=== PATIENT | male | born 1975 | race Hispanic/Latino ===

== ENCOUNTER 2018-05-10 11:35 | Emergency (ER) | payer OTHER ==
--- NOTE | 2018-05-10 14:34 | ER ---
Nurse's Notes [facility] Name: Steven Mclean Age: 42 yrs Sex: Male : 1975 Arrival Date: 05/10/2018 Time: 11:36 Bed 10 Private MD: Diagnosis: Urticaria, unspecified Presentation: 05/10 11:58 Presenting complaint: Patient states: i got this rash on my arms a week ago and then it hj spreads on other parts of my body; denies itchiness and pain; denies fever and chills;. Transition of care: patient was not received from another setting of care. Onset of symptoms was May 10, 2018. Risk Assessment: Do you want to hurt yourself or someone else? Patient reports no desire to harm self or others. Initial Sepsis Screen: Does the patient meet any 2 criteria? No. Patient's initial sepsis screen is negative. Does the patient have a suspected source of infection? No. Patient's initial sepsis screen is negative. Care prior to arrival: None. 11:58 Method Of Arrival: Ambulatory 11:58 Acuity: TYRONE 4 hj Triage Assessment: 12:00 General: Appears in no apparent distress. uncomfortable, Behavior is calm, cooperative, hj appropriate for age. Pain: Denies pain. Historical: - Allergies: 11:59 No Known Allergies; hj - Home Meds: 11:59 None [Active]; hj - PMHx: 11:59 None; hj - PSHx: 11:59 None; hj - Immunization history:: Adult Immunizations up to date. - Social history:: Smoking status: Patient/guardian denies using tobacco, Patient uses alcohol, but reports only rare drinking. - Ebola Screening: : Patient negative for fever greater than or equal to 101.5 degrees Fahrenheit, and additional compatible Ebola Virus Disease symptoms Patient denies exposure to infectious person Patient denies travel to an Ebola-affected area in the 21 days before illness onset. Screenin:00 Abuse screen: Denies threats or abuse. Denies injuries from another. Nutritional hj screening: No deficits noted. Tuberculosis screening: No symptoms or risk factors identified. Fall Risk None identified. Assessment: 13:45 General: Appears in no apparent distress. comfortable, Behavior is calm, cooperative. iw Pain: Denies pain. Neuro: Level of Consciousness is awake, alert, obeys commands, Oriented to person, place, time, situation, Moves all extremities. Full function. Cardiovascular: Patient's skin is warm and dry. Respiratory: Respiratory effort is even, unlabored, Respiratory pattern is regular, symmetrical. GI: No signs and/or symptoms were reported involving the gastrointestinal system. Derm: Rash noted that is papular, red. Musculoskeletal: Range of motion: intact in all extremities. Vital Signs: 12:00 BP 125 / 77; Pulse 75; Resp 18; Temp 98.6(O); Pulse Ox 100% on R/A; Weight 97.52 kg; hj Height 5 ft. 10 in. (177.80 cm); Pain 0/10; 12:00 Body Mass Index 30.85 (97.52 kg, 177.80 cm) hj ED Course: 11:36 Patient arrived in ED. rg4 11:59 Triage completed. hj 12:00 Arm band placed on left wrist. hj 12:00 Patient has correct armband on for positive identification. Placed in gown. Bed in low hj position. 13:46 Oralia Chawla RN is Primary Nurse. iw 14:06 Matty Albarado PA is PHCP. cp 14:06 Matty Mccoy MD is Attending Physician. cp 14:38 No provider procedures requiring assistance completed. Patient did not have IV access iw during this emergency room visit. Administered Medications: No medications were administered Outcome: 14:33 Discharge ordered by . cp 14:38 Discharged to home ambulatory. iw 14:38 Condition: stable 14:38 Discharge instructions given to patient, Instructed on discharge instructions, follow up and referral plans. medication usage, Demonstrated understanding of instructions, follow-up care, medications, Prescriptions given X 2. 14:40 Patient left the ED. hj Signatures: Oralia Chawla RN RN Timmy Mckeon RN RN Matty Albarado PA PA cp Garcia, Rubi rg4 Corrections: (The following items were deleted from the chart) 12:02 11:58 Presenting complaint: Patient states: i got this rash on my arms a week ago; hj denies itchiness and pain; denies fever and chills; hj 12:03 12:00 Pulse 75bpm; Resp 18bpm; Pulse Ox 100% RA; Temp 98.6F Oral; 97.52 kg; Height 5 hj ft. 10 in.; BMI: 30.8; Pain 0/10; hj
--- NOTE | 2018-05-10 14:34 | EDPHYS ---
Physician Documentation [facility] Name: tSeven Mclean Age: 42 yrs Sex: Male : 1975 Arrival Date: 05/10/2018 Time: 11:36 Bed 10 Private MD: ED Physician Matty Mccoy HPI: 05/10 14:25 This 42 yrs old Male presents to ER via Ambulatory with complaints of Rash. cp 14:25 The patient's rash thought to be caused by an unknown cause. The rash is located on the cp body diffusely. The rash can be described as urticarial. Onset: The symptoms/episode began/occurred 1 week(s) ago. Historical: - Allergies: 11:59 No Known Allergies; hj - Home Meds: 11:59 None [Active]; hj - PMHx: 11:59 None; hj - PSHx: 11:59 None; hj - Immunization history:: Adult Immunizations up to date. - Social history:: Smoking status: Patient/guardian denies using tobacco, Patient uses alcohol, but reports only rare drinking. - Ebola Screening: : Patient negative for fever greater than or equal to 101.5 degrees Fahrenheit, and additional compatible Ebola Virus Disease symptoms Patient denies exposure to infectious person Patient denies travel to an Ebola-affected area in the 21 days before illness onset. ROS: 14:28 Eyes: Negative for injury, pain, redness, and discharge. cp 14:28 Constitutional: Negative for body aches, chills, fever, poor PO intake. 14:28 ENT: Negative for drainage from ear(s), ear pain, sore throat, difficulty swallowing, difficulty handling secretions. 14:28 Cardiovascular: Negative for chest pain, edema, palpitations. 14:28 Respiratory: Negative for cough, shortness of breath, wheezing. 14:28 Abdomen/GI: Negative for abdominal pain, nausea, vomiting, and diarrhea. 14:28 Skin: Positive for rash, diffusely. 14:28 Neuro: Negative for altered mental status, headache, weakness. 14:28 All other systems are negative. Exam: 14:30 Head/Face: Normocephalic, atraumatic. cp 14:30 Constitutional: The patient appears in no acute distress, alert, awake, non-toxic, well developed, well nourished. 14:30 Eyes: Periorbital structures: appear normal, Conjunctiva: normal, no exudate, no injection, Lids and lashes: appear normal, bilaterally. 14:30 ENT: External ear(s): are unremarkable, Nose: is normal, Mouth: Lips: moist, Oral mucosa: moist, Posterior pharynx: is normal, airway is patent, no erythema, no exudate. 14:30 Chest/axilla: Inspection: normal, Palpation: is normal, no crepitus, no tenderness. 14:30 Cardiovascular: Rate: normal, Rhythm: regular. 14:30 Respiratory: the patient does not display signs of respiratory distress, Respirations: normal, no use of accessory muscles, no retractions, no splinting, no tachypnea, Breath sounds: are clear throughout, no decreased breath sounds, no stridor, no wheezing. 14:30 Abdomen/GI: Exam negative for discomfort, distension, guarding, Inspection: abdomen appears normal. 14:30 Skin: consistent with urticaria, and is diffusely located. Vital Signs: 12:00 BP 125 / 77; Pulse 75; Resp 18; Temp 98.6(O); Pulse Ox 100% on R/A; Weight 97.52 kg; hj Height 5 ft. 10 in. (177.80 cm); Pain 0/10; 12:00 Body Mass Index 30.85 (97.52 kg, 177.80 cm) hj MDM: 14:06 Patient medically screened. cp 14:10 Differential diagnosis: impetigo, varicella, allergic reaction, urticaria, cellulitis. cp 14:32 Data reviewed: vital signs, nurses notes, and as a result, I will discharge patient. cp 14:32 Counseling: I had a detailed discussion with the patient and/or guardian regarding: the cp historical points, exam findings, and any diagnostic results supporting the discharge/admit diagnosis, to return to the emergency department if symptoms worsen or persist or if there are any questions or concerns that arise at home. Administered Medications: No medications were administered Disposition: 05/11 07:15 Co-signature as Attending Physician, Matty Mccoy MD I agree with the assessment and john plan of care. Disposition: 05/10/18 14:33 Discharged to Home. Impression: Urticaria, unspecified. - Condition is Stable. - Discharge Instructions: Allergies, Adult, Hives. - Prescriptions for prednisone 50 mg Oral tablet - take 1 tablet by ORAL route once daily for 5 days; 5 tablet. Pepcid 20 mg Oral Tablet - take 1 tablet by ORAL route every 12 hours for 5 days; 10 tablet. - Work release form, Medication Reconciliation Form, Thank You Letter, Antibiotic Education, Prescription Opioid Use form. - Follow up: Private Physician; When: 2 - 3 days; Reason: Recheck today's complaints. - Problem is new. - Symptoms are unchanged. Signatures: Matty Mccoy MD MD cha Joaquin, Henry, RN RN hj Matty Albarado PA PA cp Corrections: (The following items were deleted from the chart) 05/10 14:40 14:33 05/10/2018 14:33 Discharged to Home. Impression: Urticaria, unspecified. hj Condition is Stable. Forms are Medication Reconciliation Form, Thank You Letter, Antibiotic Education, Prescription Opioid Use. Follow up: Private Physician; When: 2 - 3 days; Reason: Recheck today's complaints. Problem is new. Symptoms are unchanged. cp
== END 2018-05-10 14:40 | disposition home or self-care (01) ==
LOC: ER 11:35
DX: L50.9 Urticaria, unspecified (principal)
CPT/HCPCS: 99282

== ENCOUNTER 2018-05-19 10:10 | Emergency (ER) | payer OTHER ==
--- OUTSIDE RECORDS SUMMARY | 2018-05-19 10:12 | XMS REPORT ---
:1975 Author Organization eClinicalWorks Care Team Providers Name Role Phone Gonzalez [facility] Provider Role Unavailable Allergies, Adverse Reactions, Alerts Substance Reaction Event Type N.K.D.A. Info Not Available Non Drug Allergy Problems Problem Type Condition Code Onset Dates Condition Status Assessment Urticaria L50.9 Active Assessment Pruritic rash L28.2 Active Medications Medication Code Code Instructions Start End Status Dosage System Date Date Medrol [facility] 37758119147 4 MG Orally as May 17, May 23, Active as directed directed 2017 2017 Montelukast [facility] [id number] 10 MG Orally May 17, Active 1 tablet Sodium Once a day 2017 Results No Known Results Summary Purpose eClinicalWorks Submission
[2018-05-19 11:21] LABS: Urine Blood NEGATIVE (NEG); Urine Glucose NEGATIVE (NEG); Urine Protein NEGATIVE (NEG); Urine Specific Gravity 1.015 (1.005-1.030); Urine pH 5.5 (5.0-7.0)
[2018-05-19 11:23] LABS: Absolute Lymphocytes (CBC) 0.8 K/uL (0.7-4.9); Absolute Monocytes 0.5 K/uL (0.1-1.3); Absolute Neutrophil 8.5 K/uL (1.8-8.0); Basophils % 0.1 % (0-1.3); Eosinophils % 0.1 % (0-4.4); Hematocrit 47.3 % (39.6-49.0); Lymphocytes % 7.7 % (15.3-44.8); MCH 32.5 pg (27.0-35.0); MCV 91.7 fL (80-100); MPV 10.3 fL (7.6-11.3); Monocytes % 5.5 % (3.3-12.3); RBC Red Blood Cell Count 5.16 M/uL (4.33-5.43)
[2018-05-19] MEDS ORDERED: METHYLPREDNISOLONE 125 MG INJ ONE (11:25)
[2018-05-19] MEDS ORDERED: DIPHENHYDRAMINE 50 MG/ML VIAL ONE (11:26)
[2018-05-19] MEDS ORDERED: NA CHLORIDE 0.9% 1,000 ML ONE (11:26)
[2018-05-19] MEDS ORDERED: FAMOTIDINE 20 MG/2 ML VIAL IV ONE (11:26)
[2018-05-19 11:31] LABS: Potassium 4.4 mmol/L (3.5-5.1)
[2018-05-19 12:58] LABS: Blood Morphology Comment NOT SEEN (NOT SEEN); Platelet Estimate ADEQ
--- NOTE | 2018-05-19 13:05 | ER ---
Nurse's Notes [facility] Name: Steven Mclean Age: 42 yrs Sex: Male : 1975 Arrival Date: 05/19/2018 Time: 10:13 Bed 16 Private MD: Reece Gonzalez Diagnosis: Rash and other nonspecific skin eruption Presentation: 05/19 10:20 Presenting complaint: Patient states: was sent my PCP for blood work, was here with hj rash and was Rx with meds and followed up with PCP; yesterday i noticed my hands and feet were turning purple, denies pain, numbness and tingling; denies smoking; denies SOB; denies fever and chills;. Transition of care: patient was not received from another setting of care. Onset of symptoms was May 19, 2018. Risk Assessment: Do you want to hurt yourself or someone else? Patient reports no desire to harm self or others. Initial Sepsis Screen: Does the patient meet any 2 criteria? No. Patient's initial sepsis screen is negative. Does the patient have a suspected source of infection? No. Patient's initial sepsis screen is negative. Care prior to arrival: None. 10:20 Method Of Arrival: Ambulatory 10:20 Acuity: TYRONE 3 hj Triage Assessment: 10:24 General: Appears in no apparent distress. uncomfortable, Behavior is calm, cooperative, hj appropriate for age. Pain: Denies pain. Historical: - Allergies: 10:23 No Known Allergies; hj - Home Meds: 10:23 None [Active]; hj - PMHx: 10:23 None; hj - PSHx: 10:23 None; hj - Immunization history:: Adult Immunizations up to date. - Social history:: Smoking status: Patient/guardian denies using tobacco, Patient/guardian denies using alcohol. - Ebola Screening: : Patient negative for fever greater than or equal to 101.5 degrees Fahrenheit, and additional compatible Ebola Virus Disease symptoms Patient denies exposure to infectious person Patient denies travel to an Ebola-affected area in the 21 days before illness onset. - Family history:: not pertinent. - Hospitalizations: : No recent hospitalization is reported. Screenin:24 Abuse screen: Denies threats or abuse. Denies injuries from another. Nutritional hj screening: No deficits noted. Tuberculosis screening: No symptoms or risk factors identified. Fall Risk None identified. Assessment: 11:25 General: Appears in no apparent distress. uncomfortable, Behavior is calm, cooperative, jl7 appropriate for age. Pain: Denies pain. Neuro: Level of Consciousness is awake, alert, obeys commands, Oriented to person, place, time, situation. Cardiovascular: Patient's skin is warm and dry. Respiratory: Airway is patent Respiratory effort is even, unlabored, Respiratory pattern is regular, symmetrical. GI: No signs and/or symptoms were reported involving the gastrointestinal system. : No signs and/or symptoms were reported regarding the genitourinary system. EENT: No signs and/or symptoms were reported regarding the EENT system. Derm: Rash noted that is red, on right arm, left arm, right leg and left leg. Musculoskeletal: No signs and/or symptoms reported regarding the musculoskeletal system. 12:45 Reassessment: Patient and/or family updated on plan of care and expected duration. Pain jb4 level reassessed. Patient is alert, oriented x 3, equal unlabored respirations, skin warm/dry/pink. 13:00 Reassessment: Physician at the bedside. jb4 Vital Signs: 10:24 BP 128 / 86; Pulse 80; Resp 18; Temp 98.2(TE); Pulse Ox 100% on R/A; Weight 99.79 kg; hj Height 5 ft. 10 in. (177.80 cm); Pain 0/10; 11:18 BP 120 / 74; Pulse 73; Resp 17; Pulse Ox 98% on R/A; mh5 12:45 BP 117 / 71; Pulse 70; Resp 16; Pulse Ox 96% on R/A; Pain 0/10; jb4 10:24 Body Mass Index 31.57 (99.79 kg, 177.80 cm) ED Course: 10:13 Patient arrived in ED. mr 10:13 Reece Gonzalez DO is Private Physician. mr 10:23 Triage completed. hj 10:24 Arm band placed on left wrist. hj 10:24 Patient has correct armband on for positive identification. Placed in gown. Bed in low hj position. Call light in reach. Side rails up X 1. 10:30 Perry Zepead MD is Attending Physician. rn 11:11 CBC with Diff Sent. 5 11:11 Basic Metabolic Panel Sent. mh5 11:11 Initial lab(s) drawn, by ut, sent to lab. Urine collected: clean catch specimen, clear. 5 Inserted saline lock: 20 gauge in right antecubital area, using aseptic technique. Blood collected. 11:12 Pulse ox on. NIBP on. 5 13:24 No provider procedures requiring assistance completed. IV discontinued, intact, jb4 bleeding controlled. Administered Medications: 11:21 Drug: Pepcid 20 mg Route: IVP; Site: right antecubital; jl7 11:40 Follow up: Response: No adverse reaction jb4 11:21 Drug: NS 0.9% 1000 ml Route: IV; Rate: 1000 ml; Site: right antecubital; jl7 12:25 Follow up: Response: No adverse reaction; IV Status: Completed infusion jb4 11:23 Drug: Benadryl 25 mg Route: IVP; Site: right antecubital; jl7 11:40 Follow up: Response: No adverse reaction jb4 11:26 Drug: SOLU-Medrol 125 mg Route: IVP; Site: right antecubital; jl7 11:40 Follow up: Response: No adverse reaction jb4 Outcome: 13:05 Discharge ordered by . rn 13:24 Discharged to home ambulatory. jb4 13:24 Condition: stable 13:24 Discharge instructions given to patient, Instructed on discharge instructions, follow up and referral plans. Demonstrated understanding of instructions, follow-up care. 13:25 Patient left the ED. 4 Signatures: Em Madden Roman, MD MD rn Calderon, Audri, ROMARIO RN 5 Timmy Mckeon RN RN hj Bryson, James, RN RN 4 Em De Oliveira [facility] Watson Toledo RN RN jl7 Corrections: (The following items were deleted from the chart) 10:26 10:24 Pulse 80bpm; Resp 18bpm; Pulse Ox 100% RA; Temp 98.2F Temporal; 99.79 kg; Height hj 5 ft. 10 in.; BMI: 31.5; Pain 0/10; hj 13:36 10:33 Vanessa Mckinnon, RN is Primary Nurse. aa5 aa5
--- NOTE | 2018-05-19 13:06 | EDPHYS ---
Physician Documentation [facility] Name: Steven Mclean Age: 42 yrs Sex: Male : 1975 Arrival Date: 05/19/2018 Time: 10:13 Bed 16 Private MD: Giancarlo Gonzalezh ED Physician Perry Zepeda HPI: 05/19 12:17 This 42 yrs old Male presents to ER via Ambulatory with complaints of rash. rn 12:17 The patient's rash thought to be caused by an unknown cause. The rash is located on the rn body diffusely. The rash can be described as erythematous, urticarial. Onset: The symptoms/episode began/occurred 1 week(s) ago. Severity of symptoms: At their worst the symptoms were mild in the emergency department the symptoms are unchanged. The patient has experienced a previous episode. Reports seen here last week, for rash, todl was allergic, went away with steroids and benadryl, stopped taking the steroids, yesterday noticed rash coming back, same rash to body but now purple/res spots/rash on hands and feet. NO sob, no pain. . Historical: - Allergies: 10:23 No Known Allergies; hj - Home Meds: 10:23 None [Active]; hj - PMHx: 10:23 None; hj - PSHx: 10:23 None; hj - Immunization history:: Adult Immunizations up to date. - Social history:: Smoking status: Patient/guardian denies using tobacco, Patient/guardian denies using alcohol. - Ebola Screening: : Patient negative for fever greater than or equal to 101.5 degrees Fahrenheit, and additional compatible Ebola Virus Disease symptoms Patient denies exposure to infectious person Patient denies travel to an Ebola-affected area in the 21 days before illness onset. - Family history:: not pertinent. - Hospitalizations: : No recent hospitalization is reported. ROS: 12:17 Constitutional: Negative for fever, chills, and weight loss, Eyes: Negative for injury, rn pain, redness, and discharge, Neck: Negative for injury, pain, and swelling, Cardiovascular: Negative for chest pain, palpitations, and edema, Respiratory: Negative for shortness of breath, cough, wheezing, and pleuritic chest pain, Abdomen/GI: Negative for abdominal pain, nausea, vomiting, diarrhea, and constipation, MS/Extremity: Negative for injury and deformity, Skin: + rash Neuro: Negative for headache, weakness, numbness, tingling, and seizure. Exam: 12:17 Constitutional: This is a well developed, well nourished patient who is awake, alert, rn and in no acute distress. Head/Face: Normocephalic, atraumatic. Eyes: Pupils equal round and reactive to light, extra-ocular motions intact. Lids and lashes normal. Conjunctiva and sclera are non-icteric and not injected. Cornea within normal limits. Periorbital areas with no swelling, redness, or edema. ENT: no oral lesions Cardiovascular: Regular rate and rhythm with a normal S1 and S2. No gallops, murmurs, or rubs. Normal PMI, no JVD. No pulse deficits. Respiratory: Lungs have equal breath sounds bilaterally, clear to auscultation and percussion. No rales, rhonchi or wheezes noted. No increased work of breathing, no retractions or nasal flaring. Skin: warm, dry, + urticarial/lacy reticular pattern to trunk and proximal extremities, bilateral hands/fingers/feet with blotchy erythema/almost petechial lesions, non-blanching. Vital Signs: 10:24 BP 128 / 86; Pulse 80; Resp 18; Temp 98.2(TE); Pulse Ox 100% on R/A; Weight 99.79 kg; hj Height 5 ft. 10 in. (177.80 cm); Pain 0/10; 11:18 BP 120 / 74; Pulse 73; Resp 17; Pulse Ox 98% on R/A; mh5 12:45 BP 117 / 71; Pulse 70; Resp 16; Pulse Ox 96% on R/A; Pain 0/10; jb4 10:24 Body Mass Index 31.57 (99.79 kg, 177.80 cm) hj MDM: 10:30 Patient medically screened. rn 13:02 Differential diagnosis: allergic reaction, autoimmune disorder, platelet disorder. Data rn reviewed: vital signs, nurses notes, lab test result(s), and as a result, I will discharge patient. Counseling: I had a detailed discussion with the patient and/or guardian regarding: the historical points, exam findings, and any diagnostic results supporting the discharge/admit diagnosis, lab results, the need for outpatient follow up, to return to the emergency department if symptoms worsen or persist or if there are any questions or concerns that arise at home. Special discussion: I discussed with the patient/guardian in detail that at this point there is no indication for admission to the hospital. It is understood, however, that if the symptoms persist or worsen the patient needs to return immediately for re-evaluation. ED course: Pt asymptomatic, platelets normal, no pain, slightly improved with steroids, just started on steroids yesterday, pt also states mother/sister with allergy and lupus problems, told him to f/u with pcp for further autoimmune testing.. 05/19 10:47 Order name: CBC with Diff; Complete Time: 13:06 rn 05/19 10:47 Order name: Basic Metabolic Panel; Complete Time: 11:58 rn 05/19 11:15 Order name: Urine Dipstick--Ancillary (enter results); Complete Time: 11:58 bd 05/19 11:28 Order name: Manual Differential; Complete Time: 13:06 EDMS 05/19 10:47 Order name: IV Start; Complete Time: 11:11 rn Administered Medications: 11:21 Drug: Pepcid 20 mg Route: IVP; Site: right antecubital; jl7 11:40 Follow up: Response: No adverse reaction jb4 11:21 Drug: NS 0.9% 1000 ml Route: IV; Rate: 1000 ml; Site: right antecubital; jl7 12:25 Follow up: Response: No adverse reaction; IV Status: Completed infusion jb4 11:23 Drug: Benadryl 25 mg Route: IVP; Site: right antecubital; jl7 11:40 Follow up: Response: No adverse reaction jb4 11:26 Drug: SOLU-Medrol 125 mg Route: IVP; Site: right antecubital; jl7 11:40 Follow up: Response: No adverse reaction jb4 Disposition: 05/19/18 13:05 Discharged to Home. Impression: Rash and other nonspecific skin eruption. - Condition is Stable. - Discharge Instructions: Rash. - Medication Reconciliation Form, Thank You Letter, Antibiotic Education, Prescription Opioid Use, Work release form form. - Follow up: Private Physician; When: As needed; Reason: Recheck today's complaints, Re-evaluation by your physician. - Problem is new. - Symptoms have improved. Signatures: Dispatcher [employer] EDMS Perry Zepeda MD MD rn Joaquin, Henry, RN RN Hi Norton, RN RN jb4 Watson Toledo RN RN jl7 Corrections: (The following items were deleted from the chart) 12:20 12:17 Constitutional: This is a well developed, well nourished patient who is awake, rn alert, and in no acute distress. Head/Face: Normocephalic, atraumatic. Eyes: Pupils equal round and reactive to light, extra-ocular motions intact. Lids and lashes normal. Conjunctiva and sclera are non-icteric and not injected. Cornea within normal limits. Periorbital areas with no swelling, redness, or edema. ENT: no oral lesions Skin: warm, dry, + urticarial/lacy reticular pattern to trunk and proximal extremities, bilateral hands/fingers/feet with blotchy erythema/almost petechial lesions, non-blanching. rn 13:25 13:05 05/19/2018 13:05 Discharged to Home. Impression: Rash and other nonspecific skin jb4 eruption. Condition is Stable. Forms are Medication Reconciliation Form, Thank You Letter, Antibiotic Education, Prescription Opioid Use. Follow up: Private Physician; When: As needed; Reason: Recheck today's complaints, Re-evaluation by your physician. Problem is new. Symptoms have improved. rn
== END 2018-05-19 13:25 | disposition home or self-care (01) ==
LOC: ER 10:10
DX: R21 Rash and other nonspecific skin eruption (principal)
CPT/HCPCS: 36415; 80048; 81003; 85025; 96361; 96374; 96375; 99284; J2930; J7030

== ENCOUNTER 2018-11-15 01:44 | Inpatient (IN) | payer BC, OTHER ==
--- OUTSIDE RECORDS SUMMARY | 2018-11-15 01:46 | XMS REPORT ---
:1975 Author Organization eClinicalWorks Care Team Providers Name Role Phone Gonzalez [facility] Provider Role Unavailable Allergies, Adverse Reactions, Alerts Substance Reaction Event Type N.K.D.A. Info Not Available Non Drug Allergy Problems Problem Type Condition Code Onset Dates Condition Status Assessment Urticaria L50.9 Active Assessment Pruritic rash L28.2 Active Medications Medication Code Code Instructions Start End Status Dosage System Date Date Medrol [facility] [id number] 4 MG Orally as May 17, May 23, Active as directed directed 2017 2017 Montelukast [facility] [id number] 10 MG Orally May 17, Active 1 tablet Sodium Once a day 2017 Results No Known Results Summary Purpose eClinicalWorks Submission
--- OUTSIDE RECORDS SUMMARY | 2018-11-15 01:46 | XMS REPORT ---
:1975 Author Organization eClinicalWorks Care Team Providers Name Role Phone Reece Gonzalez Provider Role Unavailable Allergies No Known Allergies Problems No Known Problems Medications No Known Medications Results No Known Results Summary Purpose eClinicalWorks Submission
[2018-11-15] MEDS ORDERED: NA CHLORIDE 0.9% 1,000 ML ONE (02:38)
[2018-11-15 02:48] LABS: Absolute Lymphocytes (CBC) 1.1 K/uL (0.7-4.9); Absolute Neutrophil 12.6 K/uL (1.8-8.0); Basophils % 0.2 % (0-1.3); Eosinophils % 0.4 % (0-4.4); Hematocrit 44.3 % (39.6-49.0); Lymphocytes % 7.1 % (15.3-44.8); MPV 10.9 fL (7.6-11.3); Monocytes % 6.8 % (3.3-12.3); RBC Red Blood Cell Count 4.88 M/uL (4.33-5.43)
[2018-11-15 02:54] LABS: Protime INR 1.23
[2018-11-15 03:07] LABS: ALT/SGPT 31 U/L (12-78); AST/SGOT 16 U/L (15-37); Albumin 3.3 g/dL (3.4-5.0); Alkaline Phosphatase 94 U/L (45-117); BUN Blood Urea Nitrogen 15 mg/dL (7-18); Bicarbonate 26 mmol/L (21-32); Bilirubin Direct 0.5 mg/dL (0-0.2); Bilirubin Total 1.1 mg/dL (0.2-1.0); Glucose Level 148 mg/dL (74-106); Magnesium 2.1 mg/dL (1.8-2.4); NT PRO-BNP 52 pg/mL (<125); Potassium 3.6 mmol/L (3.5-5.1); Protein, Total 8.3 g/dL (6.4-8.2); Sodium Level 138 mmol/L (136-145); Troponin (Emerg Dept Use Only) < 0.02 ng/mL (0.0-0.045)
[2018-11-15 03:37] LABS: Blood Morphology Comment NOT SEEN (NOT SEEN); Platelet Estimate ADEQ; Urine White Blood Cell Casts OK
--- NOTE | 2018-11-15 04:20 | ER ---
Nurse's Notes [facility] Name: Steven Mclean Age: 42 yrs Sex: Male : 1975 Arrival Date: 11/15/2018 Time: 01:44 Bed 14 Private MD: Rene Fairbanks V Diagnosis: Fever presenting with conditions classified elsewhere;Lobar pneumonia, unspecified organism Presentation: 11/15 01:50 Presenting complaint: Patient states: he has not been feeling well since saw bb PCP on Thursday and was told he has a virus pt states he is feeling weak, dehydrated and having a sharp pain under his right arm when breathing. Transition of care: patient was not received from another setting of care. Onset of symptoms was November 12, 2018. Risk Assessment: Do you want to hurt yourself or someone else? Patient reports no desire to harm self or others. Initial Sepsis Screen: Does the patient meet any 2 criteria? No. Patient's initial sepsis screen is negative. Does the patient have a suspected source of infection? No. Patient's initial sepsis screen is negative. Care prior to arrival: None. 01:50 Method Of Arrival: Ambulatory 01:50 Acuity: TYRONE 3 bb 01:53 Note pt given a Z-pack and cough medicine by PCP. bb Triage Assessment: 02:58 General: Appears in no apparent distress. Respiratory: Reports shortness of breath ak1 cough that is Onset: The symptoms/episode began/occurred Thursday, the patient has mild shortness of breath. Historical: - Allergies: 01:52 No Known Allergies; bb - Home Meds: 01:52 None [Active]; bb - PMHx: 01:52 None; bb - PSHx: 01:52 None; bb - Immunization history:: Adult Immunizations up to date. - Social history:: Smoking status: Patient/guardian denies using tobacco, Patient/guardian denies using alcohol. - Ebola Screening: : No symptoms or risks identified at this time. Screenin:57 Abuse screen: Denies threats or abuse. Denies injuries from another. Nutritional ak1 screening: No deficits noted. Tuberculosis screening: No symptoms or risk factors identified. Fall Risk None identified. Assessment: 02:56 General: Appears in no apparent distress. Behavior is calm, cooperative. Pain: ak1 Complains of pain in chest. Neuro: No deficits noted. Cardiovascular: Rhythm is regular. Respiratory: Airway is patent Respiratory effort is even, unlabored. GI: No signs and/or symptoms were reported involving the gastrointestinal system. : No signs and/or symptoms were reported regarding the genitourinary system. EENT: No signs and/or symptoms were reported regarding the EENT system. Derm: Reports fever. Musculoskeletal: No signs and/or symptoms reported regarding the musculoskeletal system. 04:09 Reassessment: Patient appears in no apparent distress at this time. No changes from ak1 previously documented assessment. Patient and/or family updated on plan of care and expected duration. Pain level reassessed. Patient is alert, oriented x 3, equal unlabored respirations, skin warm/dry/pink. Respiratory: Breath sounds are clear. 05:00 Reassessment: see Antria documentation. ak1 Vital Signs: 01:52 BP 160 / 58; Pulse 99; Resp 16 S; Temp 99.1(O); Pulse Ox 94% on R/A; Weight 98.43 kg ak1 (R); Height 5 ft. 10 in. (177.80 cm) (R); Pain 10/10; 02:56 BP 127 / 87; Pulse 93; Resp 20; Pulse Ox 94% on R/A; ak1 03:55 BP 125 / 80; Pulse 91; Resp 21; Pulse Ox 94% on R/A; ar5 01:52 Body Mass Index 31.14 (98.43 kg, 177.80 cm) ak1 ED Course: 01:44 Patient arrived in ED. am2 01:45 Rene Fairbanks MD is Private Physician. am2 01:52 Triage completed. bb 01:52 Arm band placed on Patient placed in an exam room, on a stretcher, on pulse oximetry. bb Family accompanied patient. 02:01 Angie Joaquin, ROMARIO is Primary Nurse. ak1 02:20 Castro Guerrier MD is Attending Physician. gs 02:35 Inserted saline lock: 20 gauge in right antecubital area, using aseptic technique. cc3 Blood collected. 02:43 Patient moved to radiology via wheelchair. kw 02:43 X-ray completed. Patient tolerated procedure well. kw 02:43 Patient moved back from radiology. kw 02:43 XRAY Chest Pa And Lat (2 Views) In Process Unspecified. EDMS 02:57 Patient has correct armband on for positive identification. Bed in low position. Call ak1 light in reach. Side rails up X 1. cook 3 pastry on. Pulse ox on. NIBP on. 03:40 Radiology exam delayed due to Unable to log onto computers in CT and X-Ray. Medical Billing And Coding Specialist kw1 unavailable. 03:[address] via wheelchair. kw1 04:19 CT Chest For PE Angio In Process Unspecified. EDMS 04:19 Rene Fairbanks MD is Hospitalizing Provider. gs 04:24 No provider procedures requiring assistance completed. Patient admitted, IV remains in ak1 place. 08:22 Awaiting: attempted to call report at this time, was told ROMARIO Brush needed more time, tw2 explained to her [facility] charting was completed and pt needs to go upstairs as we are full in the ER at this time, pt is stable and has been ready to move since shift change at 7am. Administered Medications: 02:45 Drug: NS 0.9% 1000 ml Route: IV; Rate: 1 bolus; Site: right antecubital; cc3 04:09 Follow up: IV Status: Completed infusion; IV Intake: 1000ml ak1 04:15 Drug: Rocephin - (cefTRIAXone) 1 grams Route: IVPB; Infused Over: 30 mins; Site: right ak1 antecubital; 04:23 Follow up: IV Status: Completed infusion ak1 04:15 Drug: Zithromax 500 mg Route: PO; ak1 04:24 Follow up: Response: No adverse reaction ak1 04:15 Drug: Heath 5 mg-325 mg 1 tabs Route: PO; ak1 04:24 Follow up: Response: No adverse reaction ak1 Intake: 04:09 IV: 1000ml; Total: 1000ml. ak1 Outcome: 04:20 Decision to Hospitalize by Provider. gs 04:25 Condition: stable ak1 04:25 Instructed on the need for admit, pt and family instructed on wait for room assignment and transport to hospital room until after shift change once a nurse arrives on the floor. will continue to monitor. 05:00 Admitted to ER Hold. Please see [facility] for further documentation. ak1 08:23 Admitted to Med/surg accompanied by tech, via wheelchair, room 214, with chart, Report tw2 called to ROMARIO Brush 08:29 Patient left the ED. tw2 Signatures: Dispatcher [employer] EDMS Parisa Rutherford RN RN bb Lorna Baird Amber, RN RN ak1 Lacy Araiza RN RN tw2 Shahida Camara am2 Castro Guerrier MD MD Latanya Valentine kw1 Jeni Be 3 Mandi Aviles ar5 Corrections: (The following items were deleted from the chart) 02:56 01:52 BP 160 / 28; Pulse 99bpm; Resp 16bpm; Spontaneous; Pulse Ox 94% RA; Temp 99.1F ak1 Oral; 98.43 kg Reported; Height 5 ft. 10 in. Reported; BMI: 31.1; Pain 10/; bb
--- NOTE | 2018-11-15 04:20 | EDPHYS ---
Physician Documentation [facility] Name: Steven Mclean Age: 42 yrs Sex: Male : 1975 Arrival Date: 11/15/2018 Time: 01:44 Bed 14 Private MD: Rene Fairbanks V ED Physician Castro Guerrier HPI: 11/15 04:15 This 42 yrs old Male presents to ER via Ambulatory with complaints of Pain gs Under Arm, Shortness Of Breath. 04:15 The patient has shortness of breath at rest. Onset: The symptoms/episode began/occurred gs 4 day(s) ago, and became worse and became persistent. Duration: The symptoms are continuous. The patient's shortness of breath is aggravated by coughing, exertion. Associated signs and symptoms: Pertinent positives: chest pain, productive cough. Severity of symptoms: At their worst the symptoms were severe in the emergency department the symptoms are unchanged. The patient has not experienced similar symptoms in the past. The patient has been recently seen by a physician: 3 day(s) ago, with similar presenting complaints. Historical: - Allergies: 01:52 No Known Allergies; bb - Home Meds: 01:52 None [Active]; bb - PMHx: 01:52 None; bb - PSHx: 01:52 None; bb - Immunization history:: Adult Immunizations up to date. - Social history:: Smoking status: Patient/guardian denies using tobacco, Patient/guardian denies using alcohol. - Ebola Screening: : No symptoms or risks identified at this time. ROS: 04:15 All other systems are negative. gs Exam: 04:15 Head/Face: Normocephalic, atraumatic. Eyes: Pupils equal round and reactive to light, gs extra-ocular motions intact. Lids and lashes normal. Conjunctiva and sclera are non-icteric and not injected. Cornea within normal limits. Periorbital areas with no swelling, redness, or edema. ENT: Nares patent. No nasal discharge, no septal abnormalities noted. Tympanic membranes are normal and external auditory canals are clear. Oropharynx with no redness, swelling, or masses, exudates, or evidence of obstruction, uvula midline. Mucous membranes moist. Neck: Trachea midline, no thyromegaly or masses palpated, and no cervical lymphadenopathy. Supple, full range of motion without nuchal rigidity, or vertebral point tenderness. No Meningismus. Chest/axilla: Normal chest wall appearance and motion. Nontender with no deformity. No lesions are appreciated. 04:15 Abdomen/GI: Soft, non-tender, with normal bowel sounds. No distension or tympany. No guarding or rebound. No evidence of tenderness throughout. Back: No spinal tenderness. No costovertebral tenderness. Full range of motion. Skin: Warm, dry with normal turgor. Normal color with no rashes, no lesions, and no evidence of cellulitis. MS/ Extremity: Pulses equal, no cyanosis. Neurovascular intact. Full, normal range of motion. Neuro: Awake and alert, GCS 15, oriented to person, place, time, and situation. Cranial nerves II-XII grossly intact. Motor strength 5/5 in all extremities. Sensory grossly intact. Cerebellar exam normal. Normal gait. 04:15 Constitutional: The patient appears alert, awake, uncomfortable. 04:15 Cardiovascular: Rate: normal, Rhythm: regular, Pulses: no pulse deficits are appreciated, Heart sounds: normal. 04:15 ECG was reviewed by the Attending Physician. 04:15 Respiratory: the patient does not display signs of respiratory distress, Respirations: splinting, tachypnea, Breath sounds: rales, that are moderate, are heard in the right posterior lower lobe. Vital Signs: 01:52 BP 160 / 58; Pulse 99; Resp 16 S; Temp 99.1(O); Pulse Ox 94% on R/A; Weight 98.43 kg ak1 (R); Height 5 ft. 10 in. (177.80 cm) (R); Pain 10/10; 02:56 BP 127 / 87; Pulse 93; Resp 20; Pulse Ox 94% on R/A; ak1 03:55 BP 125 / 80; Pulse 91; Resp 21; Pulse Ox 94% on R/A; ar5 01:52 Body Mass Index 31.14 (98.43 kg, 177.80 cm) ak1 MDM: 02:28 Patient medically screened. 04:15 Differential diagnosis: pneumonia, Pneumothorax pulmonary edema, Pulmonary Embolism. gs Antibiotic administration: Rocephin and Zithromax given. Data reviewed: vital signs, nurses notes, and as a result, I will admit patient. 11/15 02:19 Order name: Basic Metabolic Panel 11/15 02:19 Order name: CBC with Diff gs 11/15 02:19 Order name: LFT's gs 11/15 02:19 Order name: Magnesium gs 11/15 02:19 Order name: NT PRO-BNP gs 11/15 02:19 Order name: PT-INR; Complete Time: 03:10 gs 11/15 02:19 Order name: Troponin (emerg Dept Use Only); Complete Time: 03:09 gs 11/15 02:19 Order name: D-Dimer; Complete Time: 03:10 gs 11/15 02:19 Order name: Blood Culture* gs 11/15 02:20 Order name: Basic Metabolic Panel; Complete Time: 03:09 EDMS 11/15 02:20 Order name: CBC with Automated Diff; Complete Time: 04:09 EDMS 11/15 02:20 Order name: Liver (Hepatic) Function; Complete Time: 03:09 EDMS 11/15 02:20 Order name: Magnesium; Complete Time: 03:09 EDMS 11/15 02:20 Order name: NT PRO-BNP; Complete Time: 03:09 EDMS 11/15 02:19 Order name: EKG; Complete Time: 02:21 gs 11/15 02:19 Order name: Cardiac monitoring; Complete Time: 02:57 gs 11/15 02:19 Order name: EKG - Nurse/Tech; Complete Time: 02:57 gs 11/15 02:19 Order name: IV Saline Lock; Complete Time: 02:57 gs 11/15 02:19 Order name: Labs collected and sent; Complete Time: 02:57 gs 11/15 02:19 Order name: O2 Per Protocol; Complete Time: 02:33 gs 11/15 02:19 Order name: O2 Sat Monitoring; Complete Time: 02:33 gs 11/15 02:19 Order name: XRAY Chest Pa And Lat (2 Views) gs 11/15 02:28 Order name: Flu gs 11/15 03:10 Order name: CT Chest For PE Angio gs 11/15 03:37 Order name: CBC Smear Scan; Complete Time: 04:09 EDMS EC:15 Rate is 93 beats/min. Rhythm is regular, Normal Sinus Rhythm with Right bundle branch gs block. IN interval is normal. QRS interval is prolonged. T waves are Normal. No ST changes noted. Clinical impression: Abnormal EKG without significant change. Interpreted by me. Administered Medications: 02:45 Drug: NS 0.9% 1000 ml Route: IV; Rate: 1 bolus; Site: right antecubital; cc3 04:09 Follow up: IV Status: Completed infusion; IV Intake: 1000ml ak1 04:15 Drug: Rocephin - (cefTRIAXone) 1 grams Route: IVPB; Infused Over: 30 mins; Site: right ak1 antecubital; 04:23 Follow up: IV Status: Completed infusion ak1 04:15 Drug: Zithromax 500 mg Route: PO; ak1 04:24 Follow up: Response: No adverse reaction ak1 04:15 Drug: Dale 5 mg-325 mg 1 tabs Route: PO; ak1 04:24 Follow up: Response: No adverse reaction ak1 Disposition: 04:15 Critical Care:. gs Disposition: 11/15/18 04:20 Hospitalization ordered by Rene Fairbanks for Inpatient Admission. Preliminary diagnosis are Fever presenting with conditions classified elsewhere, Lobar pneumonia, unspecified organism. - Bed requested for Telemetry/MedSurg (Inpatient). - Status is Inpatient Admission. tw2 - Condition is Stable. - Problem is new. - Symptoms have improved. UTI on Admission? No Critical care time excluding procedures: 04:15 Critical care time: Bedside Care: 10 minutes, Consultation: 10 minutes, Family gs Intervention: 10 minutes. Total time: 30 minutes Signatures: Dispatcher [facility] Lina Isaac RN RN mw Ballard, Brenda, RN RN bb Krenek, Amber, RN RN ak1 Lacy Araiza RN RN tw2 Castro Guerrier MD MD Jeni Be cc3 Corrections: (The following items were deleted from the chart) 04:35 04:20 Hospitalization Ordered by Rene Fairbanks MD for Inpatient Admission. Preliminary mw diagnosis is Fever presenting with conditions classified elsewhere; Lobar pneumonia, unspecified organism. Bed requested for Telemetry/MedSurg (Inpatient). Status is Inpatient Admission. Condition is Stable. Problem is new. Symptoms have improved. UTI on Admission? No. gs 04:50 04:28 Consistent Carb (ADA) 2000 Grant ordered. EDIL EDIL 05:34 04:35 11/15/2018 04:20 Hospitalization Ordered by Rene Fairbanks MD for Inpatient Admission. Preliminary diagnosis is Fever presenting with conditions classified elsewhere; Lobar pneumonia, unspecified organism. Bed requested for [facility] ER HOLD. Status is Inpatient Admission. Condition is Stable. Problem is new. Symptoms have improved. UTI on Admission? No. mw 08:29 05:34 11/15/2018 04:20 Hospitalization Ordered by Rene Fairbanks MD for Inpatient tw2 Admission. Preliminary diagnosis is Fever presenting with conditions classified elsewhere; Lobar pneumonia, unspecified organism. Bed requested for Telemetry/MedSurg (Inpatient). Status is Inpatient Admission. Condition is Stable. Problem is new. Symptoms have improved. UTI on Admission? No. mw
[2018-11-15] MEDS ORDERED: AZITHROMYCIN 250 MG TAB ONE (04:22)
[2018-11-15] MEDS ORDERED: HYDROCODONE/APAP 5/325 MG TAB ONE (04:22)
[2018-11-15] MEDS ORDERED: CEFTRIAXONE 1000 MG/VIAL ONE (04:22)
[2018-11-15] MEDS ORDERED: IPRATROPIUM BROM 0.5MG/2.5ML NEB PRN (04:23)
[2018-11-15] MEDS ORDERED: ALBUTEROL 2.5 MG/3 ML NEB SOL NEB PRN (04:23)
[2018-11-15] MEDS ORDERED: ONDANSETRON 4 MG/2 ML VIAL IV PRN (04:23)
[2018-11-15] MEDS ORDERED: ACETAMINOPHEN 500 MG TAB PO PRN (04:23)
[2018-11-15] MEDS: NACHLORIDE 0.45% 1,000 ML IV SCH ×2 (05:00→15:19)
[2018-11-15] MEDS ORDERED: NACHLORIDE 0.45% 1,000 ML IV ONE (05:44)
--- NOTE | 2018-11-15 07:23 | EKG ---
Test Date: 2018-11-15 Test Time: 02:50:16 Retaining Room Cutter: POOL MEASUREMENT RESULTS: Intervals: Rate: 93 SD: 110 QRSD: 104 QT: 346 QTc: 430 [place]: P: 22 SD: 110 QRS: 51 T: 27 INTERPRETIVE STATEMENTS: Sinus rhythm with short SD Incomplete right bundle branch block Borderline ECG No previous ECG available for comparison Electronically Signed On 11-15-18 07:14:56 [employer] by Marty Sykes
[2018-11-15] MEDS ORDERED: INFLUENZA VACCINE (for 3y+) 0.5 ML DOSE IMVAC ONE (08:00)
--- NOTE | 2018-11-15 08:16 | RAD REPORT ---
EXAM DESCRIPTION: RAD - Chest Pa And Lat (2 Views) - 11/15/2018 2:46 am CLINICAL HISTORY: CHEST PAIN Chest pain. COMPARISON: Chest Pa And Lat (2 Views) dated 11/25/2017; Chest For Pe Angio dated 11/15/2018 FINDINGS: Mild patchy opacity seen posterolateral right lower lobe suspicious for developing pneumon ia. The lungs are otherwise clear. The heart is normal in size. No displaced fractures. IMPRESSION: Developing posterolateral right lower lobe pneumonia.
--- NOTE | 2018-11-15 08:42 | P.HP ---
Certification for Inpatient Patient admitted to: Inpatient With expected LOS: >2 Midnights Practitioner: I am a practitioner with admitting privileges, knowledge of patient current condition, hospital course, and medical plan of care. Services: Services provided to patient in accordance with Admission requirements found in Title 42 Section 412.3 of the Code of Federal Regulations Patient History Date of Service: 11/15/18 Reason for admission: COUGH, CHEST PAIN, NAUSEA AND VOMITING History of Present Illness: MR. DEJESUS CAME TO OFFICE WITH VIRAL SYNDROME, COUGH, SORE THROAT, NO CHEST PAIN AT THAT TIME. HE WAS GIVEN Z-MARCOS AND COUGH MEDICINE WITH SUSPICION OF VIRAL SYNROME OR EARLY UR BACTERIAL SYMPTOMS. HE DID NOT GET WELL. ON THURSDAY AND THURSDAY HE STARTED TO VOMIT AND LATER STARTED WITH R LOWER CHEST PAIN WITH RADIATION TO BACK. HE HAS NO FEVER, NO SPUTUM. ER DOCTOR TOLD ME HE HAS A GOOD SIZE PNEUMONIA BUT RADIOOGIST DR. TOTH SAYS THE PNEUMONIA IS SMALL. Allergies No Known Allergies Allergy (Unverified 10/13/17 16:30) Home Medications: NK [No Home Meds] 11/15/18 - Past Medical/Surgical History Diabetic: No -: PNEUMONIA - Social History Smoking Status: Unknown if ever smoked Alcohol use: No CD- Drugs: No Caffeine use: No Place of Residence: Home Review of Systems 10-point ROS is otherwise unremarkable General: Weakness, Malaise Respiratory: Cough, Shortness of Breath, Pleuritic Pain Gastrointestinal: Nausea, Vomiting Physical Examination - Vital Signs Temperature: 98.9 F Blood Pressure: 125/80 Pulse: 91 Respirations: 21 Pulse Ox (%): 94 - Physical Exam General: Alert, Moderate distress HEENT: Atraumatic, PERRLA, Mucous membr. moist/pink, EOMI, Sclerae nonicteric Neck: Supple, 2+ carotid pulse no bruit, No LAD, Without JVD or thyroid abnormality Respiratory: Diminished Cardiovascular: Regular rate/rhythm, Normal S1 S2 Gastrointestinal: Normal bowel sounds, No tenderness Musculoskeletal: No tenderness Integumentary: No rashes Neurological: Normal gait, Normal speech, Normal strength at 5/5 x4 extr, Normal tone, Normal affect Lymphatics: No axilla or inguinal lymphadenopathy - Studies Laboratory Data (last 24 hrs) 11/15/18 02:35: PT 14.6 H, INR 1.23 11/15/18 02:35: WBC 14.8 H, Hgb 15.3, Hct 44.3, Plt Count 166 11/15/18 02:35: Sodium 138, Potassium 3.6, BUN 15, Creatinine 1.18, Glucose 148 H, Magnesium 2.1, Total Bilirubin 1.1 H, AST 16, ALT 31, Alkaline Phosphatase 94 Assessment and Plan - Problems (Diagnosis) (1) Bacterial pneumonia Current Visit: Yes Status: Acute Plan: ADD LEVAQUIN Z MARCOS FAILED. THIS IS A SMALL PNEUMONIA BUT HAS SIGNIFICANT PLEURITIC PAIN. NO SIGNS OF PE ON THE CT SCAN. (2) Elevated bilirubin Current Visit: Yes Status: Acute Plan: INFECTION CAN DO THIS. ALCOHOL CAN DO THIS. WILL DO SONOGRAM OF ABDOMEN. (3) Hyperglobulinemia Current Visit: Yes Status: Acute Plan: THIS CAN BE ACUTE PHASE REACTION FROM INFECTION. WILL FU. CHECK PROFILE FOR SPEP, HEP C , HEP B. (4) Nausea & vomiting Current Visit: Yes Status: Acute Plan: THIS IS NOT EXPLAINED BY PNEUMONIA. I WILL ORDER SONOGRAM AND LATER CT SCAN OF ABDOMEN IF NEED. HIS PAIN IS LOWER CHEST WALL AND NOT UPPER ABDOMEN AREA. - Advance Directives Does patient have a Living Will: No Does patient have a Durable POA for Healthcare: No
[2018-11-15] MEDS ORDERED: AZITHROMYCIN IV 250 MG in NA CHLORIDE 0.9% 250 ML IVPB SCH (09:00)
[2018-11-15] MEDS: CEFTRIAXONE/SWI 1gm 1 GM/10 ML SYR IV SCH ×2 (09:00→21:15)
[2018-11-15] MEDS: Levofloxacin500mg IV 500 MG/100 ML BAG IV SCH (09:46)
--- NOTE | 2018-11-15 11:42 | RAD REPORT ---
EXAM DESCRIPTION: US - Abdomen Exam Complete - 11/15/2018 8:56 am CLINICAL HISTORY: Abdominal pain. PAIN IN ABDOMEN COMPARISON: No comparisons FINDINGS: The liver is normal in size, shape and echotexture. No focal liver lesions or intrahepatic biliary dilatation is seen. The gallbladder demonstrates no gallstones, pericholecystic fluid or gallbladder wall thickening. Co mmon bile duct is normal in caliber measuring 4 mm. Both kidneys are normal in size, shape and echotexture. No hydronephrosis, focal lesion of concern or perinephric fluid. The spleen is normal in size measuring 10 cm. The pancreas and aorta are obscured by bowel gas. The visualized aspects of the IVC are grossly normal. IMPRESSION: Unremarkable study except for limited assessment of the pancreas and aorta due to bowel gas.
[2018-11-15] MEDS: TRAMADOL HCL 50 MG TAB PO PRN ×2 (13:54→21:14)
--- NOTE | 2018-11-15 15:09 | RAD REPORT ---
EXAM DESCRIPTION: CT Angiography Chest With Intravenous Contrast. CLINICAL HISTORY: The patient si 42 years old and is Male; CHEST PAIN. COMPARISON: No relevant prior studies available. TECHNIQUE: Axial computed tomographic angiography images of the chest with intravenous contrast usin g pulmonary embolism protocol. Sagittal and coronal reformatted images were created and reviewed. Thi s CT exam was performed using one or more of the following dose reduction techniques: Automated expos ure control, adjustment of the mA and/or kV according to patient size, and/or use of iterative recons truction technique. FINDINGS: Artifacts: The exam is suboptimal secondary to motion artifact. Pulmonary arteries: The main pulmonary arteries and proximal segmental branches opacify normally and are without filling defect. Aorta: No acute findings. No thoracic aortic aneurysm. Lungs: Patchy consolidation within the right lower lobe is present. Remainder of the lungs are clear. Pleural space: Unremarkable. No significant effusion. No pneumothorax. Heart: Unremarkable. No cardiomegaly. No significant effusion. No evidence of RV dysfunction. Bone/Joints: No acute fracture. No dislocation. Soft tissues: Unremarkable. Lymph nodes: Unremarkable. No enlarged lymph nodes. Liver: The liver is mildly fatty. IMPRESSION: 1. The main pulmonary arteries and proximal segmental branches opacify normally and are without filling defect. However, the remainder of the pulmonary vessels are not adequately evaluated secondary to artifact. 2. Patchy opacity within the right lower lobe suggesting pneumonia. Electronically signed by: Michelle Avalos MD 11/15/2018 4:25 AM [employer] Due to temporary technical issues with the PACS/Fluency reporting system, reports are being signed by the in house radiologist as a courtesy to ensure prompt reporting. The interpreting radiologist is f ully responsible for the content of the report.
[2018-11-15 22:24] LABS: Urine Appearance CLEAR; Urine Bilirubin NEGATIVE (NEG); Urine Blood NEGATIVE (NEG); Urine Color YELLOW; Urine Glucose NEGATIVE (NEG); Urine Protein NEGATIVE (NEG); Urine pH 6.5 (5.0-7.0)
[2018-11-15 22:25] LABS: Urine Microscopic Reflex NO UMIC
[2018-11-16] MEDS: NACHLORIDE 0.45% 1,000 ML IV SCH (01:00)
[2018-11-16 06:00] LABS: Absolute Lymphocytes (CBC) 1.6 K/uL (0.7-4.9); Absolute Neutrophil 7.2 K/uL (1.8-8.0); Basophils % 0.2 % (0-1.3); Eosinophils % 1.5 % (0-4.4); Hematocrit 39.5 % (39.6-49.0); Lymphocytes % 15.8 % (15.3-44.8); MPV 10.1 fL (7.6-11.3); RBC Red Blood Cell Count 4.35 M/uL (4.33-5.43)
[2018-11-16 06:14] VITALS: BMI 31.7
[2018-11-16 06:35] LABS: Albumin 2.8 g/dL (3.4-5.0); Bilirubin Direct 0.2 mg/dL (0-0.2); Bilirubin Total 0.6 mg/dL (0.2-1.0); Potassium 3.9 mmol/L (3.5-5.1); Protein, Total 7.2 g/dL (6.4-8.2)
[2018-11-16] MEDS: CEFTRIAXONE/SWI 1gm 1 GM/10 ML SYR IV SCH (08:50)
[2018-11-16] MEDS: Levofloxacin500mg IV 500 MG/100 ML BAG IV SCH (08:50)
[2018-11-16 08:58] VITALS: O2SAT 93
[2018-11-16 17:27] VITALS: BP 118/61; TEMP 99.8
--- NOTE | 2018-11-16 21:44 | P.DS ---
Admission Date: 11/15/18 Discharge Date: 11/16/18 Disposition: ROUTINE DISCHARGE Reason for Admission: COUGH, CHEST PAIN, NAUSEA AND VOMITING - Problems (1) Bacterial pneumonia Onset Date: 11/16/18 Status: Acute (2) Elevated bilirubin Onset Date: 11/16/18 Status: Acute (3) Hyperglobulinemia Onset Date: 11/16/18 Status: Acute (4) Nausea & vomiting Onset Date: 11/16/18 Status: Acute Brief History of Present Illness: MR. DEJESUS CAME TO OFFICE WITH VIRAL SYNDROME, COUGH, SORE THROAT, NO CHEST PAIN AT THAT TIME. HE WAS GIVEN [facility] AND COUGH MEDICINE WITH SUSPICION OF VIRAL SYNROME OR EARLY UR BACTERIAL SYMPTOMS. HE DID NOT GET WELL. ON THURSDAY AND THURSDAY HE STARTED TO VOMIT AND LATER STARTED WITH R LOWER CHEST PAIN WITH RADIATION TO BACK. HE HAS NO FEVER, NO SPUTUM. ER DOCTOR TOLD ME HE HAS A GOOD SIZE PNEUMONIA BUT RADIOOGIST DR. TOTH SAYS THE PNEUMONIA IS SMALL. ROXANNE HAS DONE WELL. HE IS EATING FOOD WELL. HIS PAIN AND COUGH HAS IMPROVED. HE HAS SMALL PNEUMONIA. HE WILL CONTINUE LEVAUQIN AND FU. Vital Signs/Physical Exam: Temp Pulse Resp BP Pulse Ox 99.8 F 81 17 118/61 94 11/16/18 12:00 11/16/18 12:00 11/16/18 12:00 11/16/18 12:00 11/16/18 12:00 Laboratory Data at Discharge: WBC 10.0 K/uL (4.3-10.9) D 11/16/18 05:20 Hgb 13.7 g/dL (13.6-17.9) 11/16/18 05:20 Hct 39.5 % (39.6-49.0) L 11/16/18 05:20 Plt Count 159 K/uL (152-406) 11/16/18 05:20 PT 14.6 SECONDS (9.5-12.5) H 11/15/18 02:35 INR 1.23 11/15/18 02:35 Sodium 138 mmol/L (136-145) 11/16/18 05:48 Potassium 3.9 mmol/L (3.5-5.1) 11/16/18 05:48 BUN 11 mg/dL (7-18) 11/16/18 05:48 Creatinine 0.97 mg/dL (0.55-1.3) 11/16/18 05:48 Glucose 100 mg/dL (74-106) 11/16/18 05:48 Magnesium 2.1 mg/dL (1.8-2.4) 11/15/18 02:35 Total Bilirubin 0.6 mg/dL (0.2-1.0) 11/16/18 05:48 AST 9 U/L (15-37) L 11/16/18 05:48 ALT 26 U/L (12-78) 11/16/18 05:48 Alkaline Phosphatase 93 U/L (45-117) 11/16/18 05:48 Home Medications: Promethazine/Dextromethorphan [Promethazine-Dm Syrup] 10 ml PO Q6H #120 ml 11/16 levoFLOXacin [Levaquin*] 500 mg PO DAILY #10 tab 11/16/18 New Medications: levoFLOXacin [Levaquin*] 500 mg PO DAILY #10 tab Promethazine/Dextromethorphan [Promethazine-Dm Syrup] 10 ml PO Q6H #120 ml Patient Discharge Instructions: STOP ZITHROMAX. COME TO OFFICE THIS THURSDAY 11 AM SO WE CAN GET YOU SET UP FOR BACK TO WORK LETTER. Followup: Rene Fairbanks MD [Primary Care Provider] -
[2018-11-17 23:34] LABS: Albumin, (SPE) 3.3 g/dL (3.8-4.8); Alpha-1-Globulins 0.5 g/dL (0.2-0.3); Gamma Globulins 0.7 g/dL (0.8-1.7); INTERPRETATION REPORT
[2018-11-19 05:27] LABS: HBsAG Nonreactive (Nonreactive); Hepatitis A IgM Antibody Nonreactive
== END 2018-11-16 14:30 | disposition home or self-care (01) | DRG 195 ==
LOC: ER 01:44 → ERHOLD 04:23 → 2ND 08:24
PROVIDERS: ADMIT Internal Medicine; ATTEND Internal Medicine
DX: J15.9 Unspecified bacterial pneumonia (principal); E80.7 Disorder of bilirubin metabolism, unspecified; R77.1 Abnormality of globulin; R11.2 Nausea with vomiting, unspecified
CPT/HCPCS: 36415; 71046; 71275; 76700; 80048; 80074; 80076; 81003; 83735; 83880; 84165; 84484; 85025; 85379; 85610; 87040; 87804; 93005; 94760; 96361; 96374; 99285; J0696; J7030; Q9967